=== PATIENT | female | born 1965 | race Caucasian/White ===

== ENCOUNTER → 2017-03-04 | Outpatient (CLI) | payer OTHER ==
--- NOTE | 2017-03-04 14:50 | REPMRS ---
Patient History The patient states she had a clinical breast exam in 02/2017. Patient is postmenopausal. No known family history of cancer. Digital Woman Screen Mammo: March 04, 2017 - Exam #: [id number] Bilateral CC and MLO view(s) were taken. Technologist: Stacy Crabtree, Technologist Prior study comparison: January 15, 2016, digital woman screen mammo performed at [facility]. January 17, 2015, digital woman screen mammo performed at [facility]. December 24, 2013, digital woman screen mammo performed at [facility]. FINDINGS: There are scattered fibroglandular densities. The patient states that there are no palpable abnormalities or other breast complaints. There has been no change in the appearance of the mammogram from the prior studies. There is moderately dense fibroglandular tissue which is fairly symmetric. There is no interval development of dominant mass, areas of architectural distortion, or clustered microcalcification typical of malignancy. No significant changes when compared with prior studies. ASSESSMENT: BI-RADS/ACR category 1 mammogram. Negative. Recommendation Routine screening mammogram in 1 year (for women over age 40). This mammogram was interpreted with the aid of an FDA-approved computer-aided dectection system. A. Negative x-ray reports should not delay biopsy if a dominant or clinically suspicious mass is present. B. Not all cancers are identified by mammography. C. Adenosis and dense breast may obscure an underlying neoplasm. Electronically Signed By: Cristian Martell M.D. 03/04/17 [id number]
== END ==
LOC: M WHC 13:36
PROVIDERS: ATTEND Nurse Practitioner Family
DX: Z12.31 Encounter for screening mammogram for malignant neoplasm of breast (principal); Z78.0 Asymptomatic menopausal state